=== PATIENT | female | born 1970 | race Caucasian/White ===

== ENCOUNTER 2016-10-25 05:33 | Inpatient (IN) | payer MEDICARE ==
[2016-10-25] MEDS ORDERED: LORazepam INJ* 2 MG/ML 1 ML VIAL IM ONE (07:59)
[2016-10-25] MEDS ORDERED: Haloperidol INJ IV/IM* 5 MG/ML AMP IM ONE (08:17)
[2016-10-25 09:32] LABS: Hematocrit 42 % (35-47); Hemoglobin 14.1 g/dl (12.0-16.0); Mean Corpuscular Hemoglobin 33 pg (27-31); Mean Corpuscular Volume 96 fL (80-97); Red Blood Count 4.32 10^6/ul (4.0-5.4); White Blood Count 9.7 10^3/ul (3.5-10.8)
[2016-10-25 09:33] LABS: Mean Corpuscular HGB Conc 34 g/dl (31-36); Mean Platelet Volume 9 um3 (7.4-10.4); Red Cell Distribution Width 13 % (10.5-15)
[2016-10-25 09:47] LABS: Urine Bilirubin Negative (Negative); Urine Glucose Negative (Negative); Urine Nitrite Negative (Negative)
[2016-10-25 09:48] LABS: Urine Bacteria 1+ (Absent)
--- NOTE | 2016-10-25 10:02 | RAD ---
HISTORY: Altered mental status COMPARISONS: None TECHNIQUE: Multiple contiguous axial CT scans were obtained of the head without intravenous contrast. FINDINGS: HEMORRHAGE/INFARCT: There is no hemorrhage or acute infarct. MASSES/SHIFT: There is no mass or shift. EXTRA-AXIAL SPACES: There is mild prominence of the extra axial spaces along the frontal lobes bilaterally. This is considered an incidental finding. SULCI AND VENTRICLES: The sulci and ventricles are normal in size and position for the patient's stated age. CEREBRUM: There are no focal parenchymal abnormalities. BRAINSTEM: There are no focal parenchymal abnormalities. CEREBELLUM: There are no focal parenchymal abnormalities. VESSELS: The vessels are grossly normal. PARANASAL SINUSES: The paranasal sinuses are clear. ORBITS: The orbits are unremarkable. BONES AND SOFT TISSUE: No bone or soft tissue abnormalities are noted. OTHER: None IMPRESSION: NO ACUTE INTRACRANIAL PATHOLOGY.
[2016-10-25 10:08] LABS: Potassium 3.8 mmol/L (3.5-5.0); Sodium 134 mmol/L (133-145)
[2016-10-25 10:09] LABS: Albumin 4.8 g/dL (3.2-5.2); Anion Gap 13 mmol/L (2-11); BUN/Creatinine Ratio 20.6 (8-20); Blood Urea Nitrogen 14 mg/dL (6-24); CO2 Carbon Dioxide 22 mmol/L (22-32); Calcium 9.9 mg/dL (8.6-10.3); Chloride 99 mmol/L (101-111); EGFR African American 119.3 (>60); EGFR Non-African American 92.7 (>60); Globulin 3.1 g/dL (2-4); Glucose 111 mg/dL (70-100); Total Protein 7.9 g/dL (6.4-8.9)
[2016-10-25 10:10] LABS: ALT 36 U/L (7-52); AST 49 U/L (13-39); Alkaline Phosphatase 39 U/L (34-104)
[2016-10-25 10:23] LABS: Acetaminophen < 15 mcg/mL; Alcohol < 10 mg/dL (<10); Salicylate < 2.50 mg/dL (<30)
[2016-10-25 10:28] LABS: Benzodiazepine Urine Screen None Detected (None Detect)
--- NOTE | 2016-10-25 10:31 | ED ---
Phil Hermosillo Billy, scribed for Sulaiman Buckley MD on 10/25/16 at 0809 . Psychiatric Complaint - HPI Summary HPI Summary: Patient is a 45 year-old female coming to [facility] for [facility]. History is unattainable from the patient due to flight of ideas and delusions. Level 5 caveat. - History Of Current Complaint Chief Complaint: EDMentalHealth Time Seen by Provider: 10/25/16 06:04 Hx From Patient Unobtainable Due To: Other - Flight of ideas Timing: Constant Severity Initially: Moderate Severity Currently: Moderate Aggravating Factor(s): Nothing Alleviating Factor(s): Nothing Associated Signs And Symptoms: Positive: Paranoid Behavior PMH/Surg Hx/FS Hx/Imm Hx Infectious Disease History: Unable to Obtain/Confirm Infectious Disease History: Denies: Traveled Outside the [place] in Last 30 Days - Family History Known Family History: Positive: Other - Schizophrenia Review of Systems All Other Systems Reviewed And Are Negative: No - Comments Additional Review of Systems Comments: Patient is unable to provide any coherent history. ROS unattainable. Physical Exam Triage Information Reviewed: Yes Vital Signs On Initial Exam: Initial Vitals Temp Pulse Resp BP Pulse Ox 97.8 F 123 18 140/116 98 10/25/16 05:46 10/25/16 05:46 10/25/16 05:46 10/25/16 05:46 10/25/16 05:46 Vital Signs Reviewed: Yes Completion Of Physical Exam Limited Due To: Level 5 Appearance: Positive: Well-Appearing, No Pain Distress Skin: Positive: Warm Head/Face: Positive: Normal Head/Face Inspection Eyes: Positive: Normal, EOMI, ALISA ENT: Positive: Normal ENT inspection Respiratory/Lung Sounds: Positive: Clear to Auscultation, Breath Sounds Present Cardiovascular: Positive: Normal, RRR. Negative: Murmur Abdomen Description: Positive: Nontender Musculoskeletal: Positive: Normal, Strength/ROM Intact Neurological: Positive: Normal, Sensory/Motor Intact, Alert, Oriented to Person Place, Time, CN Intact II-III Psychiatric: Positive: Other - the patient is very flight of ideas, she is very hyper, she has pressured speech. she has delusions that the FBI is coming. She is very delusional. She believes she has contact with Darell Vasquez. Diagnostics - Vital Signs Vital Signs Temp Pulse Resp BP Pulse Ox 10/25/16 05:46 97.8 F 123 18 140/116 98 - Laboratory Result Diagrams: 10/25/16 09:05 10/25/16 09:05 Lab Statement: Any lab studies that have been ordered have been reviewed, and results considered in the medical decision making process. Re-Evaluation - Re-Evaluation First Eval Re-Evaluation Time: 09:33 Change: Improved - the patient is calm now after getting meds. She is easily arousable and has room air sat of 97 percent. Course/Dx - Course Assessment/Plan: Patient will be admitted to Dr. Calles (psychiatry). - Differential Dx/Clinical Impression Provider Diagnosis: Psychotic disorder Discharge - Discharge Plan Condition: Stable Disposition: [facility] [place] Referrals: Non Staff,Doctor [Primary Care Provider] - The documentation as recorded by the Phil anders Billy accurately reflects the service I personally performed and the decisions made by me, Sulaiman Buckley MD.
[2016-10-25 10:51] LABS: TSH (Thyroid Stimulating Horm) 2.45 mcIU/mL (0.34-5.60)
[2016-10-25] MEDS ORDERED: Nicotine Inhaler* 10 MG AMP INH PRN (11:18)
[2016-10-25] MEDS ORDERED: chlorproMAZINE TAB* 50 MG PO PRN (11:19)
[2016-10-25] MEDS: diPHENhydraMINE PO* 50 MG PO PRN (23:38)
--- NOTE | 2016-10-26 11:22 | PN ---
MHU: Group Therapy Note - Service Type Service Type: [id number] Group Psychotherapy - Cognitive Behavioral Group Therapy ( CBT):Patient was attentive and participatory in CBT programming this morning, and remained in good behavioral control. Patient expressed positive insights regarding relevant treatment interventions and goals. Marium however presented as symptomatic in individiual conversation, expressing concerns about being "zapped" and showing scabs on her hands. Thought content impressed as grandiose and paranoid in individual conversation. Her discussion in the group context was topical, relevant and insightful.
[2016-10-26] MEDS ORDERED: QUEtiapine TAB* 25 MG PO PRN (12:18)
[2016-10-26 13:34] LABS: HDL Cholesterol 83.3 mg/dL
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
[2016-10-26] MEDS: OLANzapine TAB* 5 MG PO SCH (20:37)
[2016-10-27] MEDS: OLANzapine TAB* 5 MG PO SCH (20:32)
--- NOTE | 2016-10-28 15:20 | PN ---
Subjective - Subjective Service Type: 81564 Hosp care 15 min low complexity Subjective: Seen Marium today on follow up. She continues to be preoccupied about lasers from satellites and Scientologist's kidnapping her. Thought processes are highly disorganized. She is somatically preoccupied regarding the effects of rays from satellites and believes that if she could make a replica of herself that would fool the "hackers" who are attempting to steal her identity on the internet. Case discussed with Dr. Bergman. Objective - Appearance Appearance: Thin Framed Dysmorphic Features: No Hygiene: Mal-odorous Grooming: Disheveled - Behavior Psychomotor Activities: Normal Exhibits Abnormal Movement: No - Attitude and Relatedness Attitude and Relatedness: Psychotically Related Eye Contact: Good - Speech Quality: Pressured Latencies: Short Quantity: Copious - Mood Patient's Decription of Mood: "Great" - Affect Observed Affect: Euphoric Affect Consistent with: Euphoria - Thought Process Patient's Thought Process: Disorganized, Filght of Ideas Thought Content: Yes Paranoid Ideation - See subjective section, No Passive Wish - Denies, No Suicidal Planning - Denies, No Homicidal Ideation - Denies - Sensorium Type of Hallucinations: Visual: No - Denies, Auditory: No - Denies - Level of Consciousness Level of Consciousness: Alert Orientation: Yes Intact, Yes Orientated to Time, Yes Orientated to Place, Yes Orientated to Person - Impulse Control Impulse Control: Impaired - Insight and Judgement Insight and Judgement: Poor - Group Participation Particating in Group Activities: Yes - Medication Management Medication Management Adherence: Yes Plan - Plan Treatment Plan: Name: MARIUM MCMILLAN Birthdate: 1970 [id number] Medications: Current Medications Acetaminophen (Tylenol Tab*) 650 mg PO Q6H PRN PRN Reason: PAIN Diphenhydramine HCl (Benadryl Po*) 50 mg PO BEDTIME PRN PRN Reason: INSOMNIA Last Admin: 10/25/16 23:38 Dose: 50 mg Nicotine (Nicotine Inhaler*) 10 mg INH Q2H PRN PRN Reason: CRAVING Olanzapine (Zyprexa Tab*) 5 mg PO BEDTIME OLI Last Admin: 10/27/16 20:32 Dose: 5 mg Quetiapine Fumarate (Seroquel Tab*) 25 mg PO Q6H PRN PRN Reason: AGITATION
[2016-10-28] MEDS: OLANzapine TAB* 10 MG PO SCH (20:11)
[2016-10-29] MEDS: Acetaminophen TAB* 325 MG PO PRN (10:08)
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
[2016-10-29] MEDS: OLANzapine TAB* 10 MG PO SCH (20:53)
--- NOTE | 2016-10-30 11:01 | PN ---
MHU: Group Therapy Note - Service Type Service Type: [id number] Group Psychotherapy - Cognitive Behavioral Group Therapy ( CBT):Patient presented in CBT programming as disorganized and disruptive in discussion and needed repeated redirection to attend to presented materials.
--- NOTE | 2016-10-30 17:21 | PN ---
Subjective - Subjective Service Type: [id number] Hosp care 15 min low complexity Subjective: The patient is hyperverbal with persecutory delusions. She shows me a stack of papers with scrawled writing amongst unrelated forms and patient hand-outs, saying "Look, I told you I needed to go to the [employer] and then the [employer] to discuss these things." She indicates that she's renting a room in an apartment that she can't afford with her $1600/month disability payment. She denies SI or HI and insists that she's ready for discharge. Objective - Appearance Appearance: Thin Framed Dysmorphic Features: No Hygiene: Normal Grooming: Fairly Well Kept - Behavior Psychomotor Activities: Abnormal-Increased Exhibits Abnormal Movement: No - Attitude and Relatedness Attitude and Relatedness: Psychotically Related Eye Contact: Good - Speech Quality: Pressured Latencies: Short Quantity: Copious - Mood Patient's Decription of Mood: "Great" - Affect Observed Affect: Euphoric Affect Consistent with: Euphoria - Thought Process Patient's Thought Process: Filght of Ideas Thought Content: Yes Paranoid Ideation, No Passive Wish, No Suicidal Planning, No Homicidal Ideation - Sensorium Experiencing Hallucinations: No, Sensorium is Clear Type of Hallucinations: Visual: No, Auditory: No, Command: No - Level of Consciousness Level of Consciousness: Alert Orientation: Yes Intact, Yes Orientated to Time, Yes Orientated to Place, Yes Orientated to Person - Impulse Control Impulse Control: Poor - Insight and Judgement Insight and Judgement: Impaired - Group Participation Particating in Group Activities: Yes - Medication Management Medication Management Adherence: Yes Assessment - Assessment Merits Inpatient Hospitalization: For Immediate Safety, For Stabilization Inpatient DSM-IV Dx: Unspecified Psychotic DO Clinical Impression: 45 y.o. single, white female with a history of psychosis admitted involuntarily for gross thought disorganization and inability to care for herself in the community. Plan - Plan Treatment Plan: Name: GIANNI MCMILLAN Birthdate: 1970 [id number] Patient still presenting with psychotic joselito. Will increase olanzapine to 15mg PO qhs. May need to convert to 2PC. Continued Medication Management: Start Medication Medications: Current Medications Acetaminophen (Tylenol Tab*) 650 mg PO Q6H PRN PRN Reason: PAIN Last Admin: 10/29/16 10:08 Dose: 650 mg Diphenhydramine HCl (Benadryl Po*) 50 mg PO BEDTIME PRN PRN Reason: INSOMNIA Last Admin: 10/25/16 23:38 Dose: 50 mg Nicotine (Nicotine Inhaler*) 10 mg INH Q2H PRN PRN Reason: CRAVING Quetiapine Fumarate (Seroquel Tab*) 25 mg PO Q6H PRN PRN Reason: AGITATION - Discharge Plan Discharge Plan: Inpatient Hospitalization
[2016-10-30] MEDS: diPHENhydraMINE PO* 50 MG PO PRN (20:44)
[2016-10-30] MEDS ORDERED: OLANzapine TAB* 5 MG PO SCH (21:00)
--- NOTE | 2016-10-31 14:06 | PN ---
MHU: Group Therapy Note - Service Type Service Type: [id number] Group Psychotherapy - Cognitive Behavioral Group Therapy ( CBT):Patient presented in CBT programming as disorganized and disruptive in discussion and needed repeated redirection to attend to presented materials.
--- NOTE | 2016-10-31 15:04 | PN ---
Subjective - Subjective Service Type: [id number] Hosp care 15 min low complexity Subjective: The patient remains hyperverbal, although she's much more interuptable, and can engage on certain elements of discharge planning, such as the question of returning to live with family. She requests a decrease in her olanzapine dose, giving a somewhat abstract justification, which, to the best of this clinician' s ability, sounds like she's experiencing a caffeine-like, stimulating effect from it. 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 Objective - Appearance Appearance: Well Developed/Nourished Dysmorphic Features: No Hygiene: Normal Grooming: Fairly Well Kept - Behavior Psychomotor Activities: Abnormal-Increased Exhibits Abnormal Movement: No - Attitude and Relatedness Attitude and Relatedness: Cooperative Eye Contact: Good - Speech Quality: Pressured Latencies: Short Quantity: Copious - Mood Patient's Decription of Mood: "Great" - Affect Observed Affect: Euphoric Affect Consistent with: Euphoria - Thought Process Patient's Thought Process: Filght of Ideas Thought Content: Yes Paranoid Ideation, No Passive Wish, No Suicidal Planning, No Homicidal Ideation - Sensorium Experiencing Hallucinations: No, Sensorium is Clear Type of Hallucinations: Visual: No, Auditory: No, Command: No - Level of Consciousness Level of Consciousness: Alert Orientation: Yes Intact, Yes Orientated to Place, Yes Orientated to Person - Impulse Control Impulse Control: Poor - Insight and Judgement Insight and Judgement: Impaired - Group Participation Particating in Group Activities: No - Medication Management Medication Management Adherence: Yes Assessment - Assessment Merits Inpatient Hospitalization: For Immediate Safety, For Stabilization Inpatient DSM-IV Dx: Unspecified Psychotic DO Clinical Impression: 45 y.o. single, white female with a history of psychosis admitted involuntarily for gross thought disorganization and inability to care for herself in the community. Plan - Plan Treatment Plan: Name: GIANNI MCMILLAN Birthdate: 1970 [id number] Patient still presenting with psychotic joselito. Per patient's wishes, we will decrease olanzapine to 12.5mg PO qhs. May need to convert to 2PC. Continued Medication Management: Start Medication Medications: Current Medications Acetaminophen (Tylenol Tab*) 650 mg PO Q6H PRN PRN Reason: PAIN Last Admin: 10/29/16 10:08 Dose: 650 mg Diphenhydramine HCl (Benadryl Po*) 50 mg PO BEDTIME PRN PRN Reason: INSOMNIA Last Admin: 10/30/16 20:44 Dose: 50 mg Nicotine (Nicotine Inhaler*) 10 mg INH Q2H PRN PRN Reason: CRAVING Olanzapine (Zyprexa Tab*) 12.5 mg PO BEDTIME OLI Quetiapine Fumarate (Seroquel Tab*) 25 mg PO Q6H PRN PRN Reason: AGITATION - Discharge Plan Discharge Plan: Inpatient Hospitalization
[2016-10-31] MEDS: OLANzapine TAB* 5 MG PO SCH (20:35)
[2016-10-31] MEDS: diPHENhydraMINE PO* 50 MG PO PRN (20:37)
--- NOTE | 2016-11-01 13:02 | PN ---
Subjective - Subjective Service Type: 83362 Hosp care 15 min low complexity Subjective: Marium's conversations seems slightly more coherent by the day, although she continues to trail off into hyperreligious and grandiose delusions if you allow her the space to reveal her thought process. She did tolerate olanzapine well last night at the 12.5mg dose. She is not ready to participate yet in group interactions, becoming easily a distraction for others with her bizarre speech, but she feels like she's improving. She denies SI or HI. Objective - Appearance Appearance: Thin Framed Dysmorphic Features: No Hygiene: Normal Grooming: Fairly Well Kept - Behavior Psychomotor Activities: Normal Exhibits Abnormal Movement: No - Attitude and Relatedness Attitude and Relatedness: Psychotically Related Eye Contact: Good - Speech Quality: Pressured Latencies: Short Quantity: Copious - Mood Patient's Decription of Mood: "Great" - Affect Observed Affect: Expansive Affect Consistent with: Euphoria - Thought Process Patient's Thought Process: Filght of Ideas Thought Content: Yes Paranoid Ideation, No Passive Wish, No Suicidal Planning, No Homicidal Ideation - Sensorium Experiencing Hallucinations: No, Sensorium is Clear Type of Hallucinations: Visual: No, Auditory: No, Command: No - Level of Consciousness Level of Consciousness: Alert Orientation: Yes Intact, Yes Orientated to Time, Yes Orientated to Place, Yes Orientated to Person - Impulse Control Impulse Control: Poor - Insight and Judgement Insight and Judgement: Impaired - Group Participation Particating in Group Activities: No - Medication Management Medication Management Adherence: Yes Assessment - Assessment Merits Inpatient Hospitalization: For Immediate Safety, For Stabilization Inpatient DSM-IV Dx: Unspecified Psychotic DO Clinical Impression: 45 y.o. single, white female with a history of psychosis admitted involuntarily for gross thought disorganization and inability to care for herself in the community. Plan - Plan Treatment Plan: Name: MARIUM MCMILLAN Birthdate: 1970 [id number] Patient still presenting with psychotic joselito, which seems to be steadily improving on olanzapine 12.5mg PO qhs. Will keep over the weekend and then initiate d/c planning discussions with patient and family. Continued Medication Management: Start Medication Medications: Current Medications Acetaminophen (Tylenol Tab*) 650 mg PO Q6H PRN PRN Reason: PAIN Last Admin: 10/29/16 10:08 Dose: 650 mg Diphenhydramine HCl (Benadryl Po*) 50 mg PO BEDTIME PRN PRN Reason: INSOMNIA Last Admin: 10/31/16 20:37 Dose: 50 mg Nicotine (Nicotine Inhaler*) 10 mg INH Q2H PRN PRN Reason: CRAVING Olanzapine (Zyprexa Tab*) 12.5 mg PO BEDTIME OLI Last Admin: 10/31/16 20:35 Dose: 12.5 mg Quetiapine Fumarate (Seroquel Tab*) 25 mg PO Q6H PRN PRN Reason: AGITATION - Discharge Plan Discharge Plan: Inpatient Hospitalization
[2016-11-01] MEDS: OLANzapine TAB* 5 MG PO SCH (20:35)
--- NOTE | 2016-11-02 15:29 | PN ---
Subjective - Subjective Service Type: 93343 Hosp care 15 min low complexity Subjective: Marium will keep it together and discuss mundane, appropriate discharge planning topics for about the first five minutes of recent conversations. Thereafter, she derails quickly into esoteric, irrelevant subjects that begin to make the observer uncomfortable. I will say that she is considerably more interuptable during these ramblings when compared to earlier in her hospital course. She is still vague about exactly what she will do, with particular regards to housing, after discharge from the [facility]. Objective - Appearance Appearance: Thin Framed Dysmorphic Features: No Hygiene: Mal-odorous Grooming: Fairly Well Kept - Behavior Psychomotor Activities: Normal Exhibits Abnormal Movement: No - Attitude and Relatedness Attitude and Relatedness: Psychotically Related Eye Contact: Fair - Speech Quality: Pressured Latencies: Short Quantity: Copious - Mood Patient's Decription of Mood: "Great" - Affect Observed Affect: Expansive Affect Consistent with: Euphoria - Thought Process Patient's Thought Process: Tangential Thought Content: Yes Paranoid Ideation, No Passive Wish, No Suicidal Planning, No Homicidal Ideation - Sensorium Experiencing Hallucinations: No, Sensorium is Clear Type of Hallucinations: Visual: No, Auditory: No, Command: No - Level of Consciousness Level of Consciousness: Alert Orientation: Yes Intact, Yes Orientated to Time, Yes Orientated to Place, Yes Orientated to Person - Impulse Control Impulse Control: Poor - Insight and Judgement Insight and Judgement: Impaired - Group Participation Particating in Group Activities: No - Medication Management Medication Management Adherence: Yes Assessment - Assessment Merits Inpatient Hospitalization: For Immediate Safety, For Stabilization Inpatient DSM-IV Dx: Unspecified Psychotic DO Clinical Impression: 45 y.o. single, white female with a history of psychosis admitted involuntarily for gross thought disorganization and inability to care for herself in the community. Plan - Plan Treatment Plan: Name: MARIUM MCMILLAN Birthdate: 1970 [id number] Patient still presenting with psychotic joselito, which seems to be steadily improving on olanzapine 12.5mg PO qhs. Will keep over the weekend and then initiate d/c planning discussions with patient and family. Continued Medication Management: Start Medication Medications: Current Medications Acetaminophen (Tylenol Tab*) 650 mg PO Q6H PRN PRN Reason: PAIN Last Admin: 10/29/16 10:08 Dose: 650 mg Diphenhydramine HCl (Benadryl Po*) 50 mg PO BEDTIME PRN PRN Reason: INSOMNIA Last Admin: 10/31/16 20:37 Dose: 50 mg Nicotine (Nicotine Inhaler*) 10 mg INH Q2H PRN PRN Reason: CRAVING Olanzapine (Zyprexa Tab*) 12.5 mg PO BEDTIME OLI Last Admin: 11/01/16 20:35 Dose: 12.5 mg Quetiapine Fumarate (Seroquel Tab*) 25 mg PO Q6H PRN PRN Reason: AGITATION - Discharge Plan Discharge Plan: Inpatient Hospitalization
[2016-11-02] MEDS: OLANzapine TAB* 5 MG PO SCH (20:22)
[2016-11-02] MEDS: Acetaminophen TAB* 325 MG PO PRN (20:23)
[2016-11-03] MEDS: OLANzapine TAB* 5 MG PO SCH (20:41)
[2016-11-04] MEDS: Acetaminophen TAB* 325 MG PO PRN ×2 (13:06→20:22)
[2016-11-04] MEDS: OLANzapine TAB* 5 MG PO SCH (20:22)
[2016-11-05] MEDS: Acetaminophen TAB* 325 MG PO PRN ×2 (08:24→20:49)
--- NOTE | 2016-11-05 11:40 | PN ---
[facility]: Group Therapy Note - Service Type Service Type: [id number] Group Psychotherapy - Cognitive Behavioral Group Therapy ( CBT):Patient was attentive and participatory in CBT programming this morning, and remained in good behavioral control. Patient expressed positive insights regarding relevant treatment interventions and goals.
--- NOTE | 2016-11-05 13:11 | PN ---
Subjective - Subjective Service Type: 71870 Hosp care 15 min low complexity Subjective: The patient is seen along with SABRINA Oscar for follow up. She had a good weekend per staff, has resumed groups and is socially more interactive and appropriate. On exam, she remains hyperverbal and tangential but discusses rational subject matters such as housing, employment and supporting herself in the community. Despite efforts to get her to sign in to the hospital voluntarily and wave her court hearing tomorrow, she continues to insist on discharge tomorrow. "I've got to get an apartment and a job lined up for when I get back into town." She does give permission to contact her sister in [place] for further collateral and d/c planning. Objective - Appearance Appearance: Thin Framed Dysmorphic Features: No Hygiene: Normal Grooming: Well Kept - Behavior Psychomotor Activities: Normal Exhibits Abnormal Movement: No - Attitude and Relatedness Attitude and Relatedness: Cooperative Eye Contact: Good - Speech Quality: Pressured Latencies: Short Quantity: Copious - Mood Patient's Decription of Mood: "Great" - Affect Observed Affect: Euphoric Affect Consistent with: Euphoria - Thought Process Patient's Thought Process: Tangential Thought Content: Yes Paranoid Ideation, No Passive Wish, No Suicidal Planning, No Homicidal Ideation - Sensorium Experiencing Hallucinations: No, Sensorium is Clear Type of Hallucinations: Visual: No, Auditory: No, Command: No - Level of Consciousness Level of Consciousness: Alert Orientation: Yes Intact, Yes Orientated to Time, Yes Orientated to Place, Yes Orientated to Person - Impulse Control Impulse Control: Tenuous - Insight and Judgement Insight and Judgement: Fair - Group Participation Particating in Group Activities: Yes - Medication Management Medication Management Adherence: Yes Assessment - Assessment Merits Inpatient Hospitalization: For Immediate Safety, For Stabilization Inpatient DSM-IV Dx: Unspecified Psychotic DO Clinical Impression: 45 y.o. single, white female with a history of psychosis admitted involuntarily for gross thought disorganization and inability to care for herself in the community. Plan - Plan Treatment Plan: Name: GIANNI MCMILLAN Birthdate: 1970 [id number] Patient still presenting with joselito, which seems to be steadily improving on olanzapine 12.5mg PO qhs. Will attempt to initiate d/c planning discussions with patient and family. Patient may require d/c tomorrow as nothing dangerous in her presentation to justify court proceedings for involuntary retention. Continued Medication Management: Start Medication Medications: Current Medications Acetaminophen (Tylenol Tab*) 650 mg PO Q6H PRN PRN Reason: PAIN Last Admin: 11/05/16 08:24 Dose: 650 mg Diphenhydramine HCl (Benadryl Po*) 50 mg PO BEDTIME PRN PRN Reason: INSOMNIA Last Admin: 10/31/16 20:37 Dose: 50 mg Nicotine (Nicotine Inhaler*) 10 mg INH Q2H PRN PRN Reason: CRAVING Olanzapine (Zyprexa Tab*) 12.5 mg PO BEDTIME OLI Last Admin: 11/04/16 20:22 Dose: 12.5 mg Quetiapine Fumarate (Seroquel Tab*) 25 mg PO Q6H PRN PRN Reason: AGITATION - Discharge Plan Discharge Plan: Inpatient Hospitalization
[2016-11-05] MEDS: OLANzapine TAB* 5 MG PO SCH (20:49)
[2016-11-06 08:04] VITALS: BP 102/64
[2016-11-06] MEDS: Acetaminophen TAB* 325 MG PO PRN (09:23)
--- NOTE | 2016-11-06 11:22 | PN ---
MHU: Group Therapy Note - Service Type Service Type: 20003 Group Psychotherapy - Cognitive Behavioral Group Therapy ( CBT):Patient was attentive and participatory in CBT programming this morning, and remained in good behavioral control. Patient expressed positive insights regarding relevant treatment interventions and goals.
--- NOTE | 2016-11-06 23:51 | DS ---
DISCHARGE SUMMARY: DATE OF ADMISSION: 10/25/16 DATE OF DISCHARGE: 11/06/16 DISCHARGE DIAGNOSES: As follows: [place] I: Schizoaffective disorder, bipolar type. [place] II: Deferred. [place] III: None. [place] IV: Severe financial and housing stressors. [place] V: At the time of admission was 30 and at the time of discharge is 60. CONDITION AT THE TIME OF DISCHARGE: Improved. The patient is making more sense in terms of her speech. She is less hyperverbal. She is considerably better organized. There is no evidence of delusional thought process and her sister indicates that she is essentially back to her baseline. The patient is requesting discharge and is agreeable to following up with outpatient treatment in the community. She states that she likes the olanzapine that she has been taking and would like to continue taking this on an outpatient basis. She has selected a local pharmacy to use, which is within walking distance of her house and the plan is for her to stay with her sister for the next month, so that they can visit their mother in [place]; however, the patient has sought followup appointments at [facility]. MENTAL STATUS AT THE TIME OF DISCHARGE: The patient is a middle-aged, slender, petite, white female, who is clean and well groomed. She is calm, cooperative, expressive, mildly hyperverbal. Mood appears to be somewhat hyperthymic, but her affect is full. Thought process is somewhat tangential. Thought content is significant for her desire to travel to [place] to stay briefly with her sister and then travel with her sister down to [place] to visit their mother ; thereafter, she would like to return to the [facility]. She denies suicidal or homicidal ideations. There is no evidence of overt psychotic thinking. She denies auditory or visual hallucinations. Insight and judgment appear to be fair giving her willingness to follow up with outpatient services. Cognitively, she is awake and alert with what would appear to be an average intellect. DISCHARGE INSTRUCTIONS: To the patient are as follows: A. Medications: She is on olanzapine 10 mg p.o. q.h.s. B. Diet: Regular. C. Activities: As tolerated. The patient is strongly encouraged to abstain from tobacco products; however, she is declining the continuation of nicotine replacement therapy indicating her preference to continue smoking cigarettes for the time being. There are no diagnostic studies pending at the time of discharge. D. Followup care: The patient will follow up on November 08, at the [facility]. HOSPITAL COURSE: Part A: Reason for admission: The patient is a 45-year-old single white female with a history of schizoaffective disorder, who was brought to the hospital on a 9.41 by law enforcement officials from the [facility] due to disorganized behavior. When she arrived, she was difficult to evaluate because she was floridly psychotic demonstrating flight of ideas and providing multiple non-sequitur responses to posed questions. She stated that her computer had been hacked since she had moved here from [place] in April. She attributed this to the efforts of PANFILO, stating "I want to get with the Audie Black and give him some advice." Apparently, the patient used to be a college student at [employer] and this is the reason for her moving back to the area. She made bizarre statements to the effect that she had blown up a plane at [employer]. Apparently, she was agitated enough to receive Ativan and Thorazine in the emergency room. Part B: Psychiatric treatment rendered: The patient was [facility], where she was placed on q.15-minute checks for her own safety. She was placed on a trial of olanzapine initially at 5 mg, but titrated ultimately to 15 mg. She did not appear to tolerate olanzapine at higher dose and so, this was decreased to 10 mg at the time of discharge. We were able to contact her sister, Chelsie, in [place], who indicated that the patient's lease, which was from April, is expiring and that she cannot afford to stay in this apartment any longer and the distress over her housing situation had caused an exacerbation in her mental health symptoms. The patient 's sister did confirm that the patient used to be a resident of [place], [place], and did use to work for [employer] Malloy, who was the director of [employer]. At any rate, the family was greatly concerned about her functioning since she had moved to [place] and they felt that she needed to be enrolled in outpatient services here. Gradually with the help of olanzapine and milieu programming, the patient's thought process improved. Her thinking slowed down to where she became logical and easy to interact with. She started going to groups. She started participating in a healthy way. Her sister indicated over the phone that she appeared to be back to her baseline. The plan at this point is for her to be discharged, so that she can follow up with [facility] later this week and then her sister will arrive in [place] to pick her up this weekend, so that they can travel to see their mother in [place]. It is uncertain whether the patient will return to this area thereafter, although this is clearly what she wants. My sense is that the patient's family would prefer that she reside with one of them. At any rate, I see no evidence of self-harm or dangerousness to others and for this reason, we feel that she can treated in a less restrictive setting. [id number]/CPS #: [id number] LISA
== END 2016-11-06 15:30 | disposition home or self-care (01) | DRG 885 ==
LOC: ED 05:33 → BSU 12:02
PROVIDERS: ADMIT Psychiatry & Neurology Psychiatry; ATTEND Psychiatry & Neurology Psychiatry
DX: F25.0 Schizoaffective disorder, bipolar type (principal); F17.210 Nicotine dependence, cigarettes, uncomplicated
CPT/HCPCS: 36415; 70450; 80053; 80061; 80307; 80320; 80329; 81003; 81015; 83036; 84443; 85025; 87086; 90853; 99222; 99231; 99238; A9270-GY; G0480; J1630; J2060